=== PATIENT | female | born 1940 | race Caucasian/White ===

== ENCOUNTER 2016-12-19 11:28 | Observation (INO) | payer BC, SELFPAY ==
[2016-12-15 09:25] LABS: HEMATOCRIT 36.6 % (36.0-48.0); HEMOGLOBIN 12.2 g/dL (12.0-16.0)
[2016-12-15 09:37] LABS: BUN (BLOOD UREA NITROGEN) 21 MG/DL (6-23); CALCIUM, SERUM 9.5 MG/DL (8.5-10.4); CHLORIDE, SERUM 104 MMOL/L (96-112); CO2 (CARBON DIOXIDE) 32 MMOL/L (24-34); CREATININE 0.82 MG/DL (0.55-1.02); GFR AFRICAN AMERICAN 81 ML/MIN (>=60); GFR NON AFRICAN AMERICAN 70 ML/MIN (>=60); POTASSIUM, SERUM 3.7 MMOL/L (3.5-5.3); SODIUM, SERUM 144 MMOL/L (135-148)
[2016-12-15 09:38] LABS: GLUCOSE, SERUM 87 MG/DL (60-99)
--- NOTE | ~2016-12-19 | DS ---
Discharge Summary [facility] [address] [facility] [place]. [address] NAME: KALYN PEREZ : 42 STATUS : DIS Slim PAT#: [id number] AGE: 76 ADM/REG DATE : 12/19/16 MR#: [id number] REPORT SERV DATE: 12/29/16 DICTATED BY: JOSE DANIEL GAN DATE: 12/29/16 REPORT STATUS : Draft TRANSCRIBED BY: NILE DATE: 12/29/16 Data Collection from hospitalization DISCHARGE DIAGNOSES: 1. Ventral/incisional hernia. 2. Hypertension. 3. Gastroesophageal reflux disease. 4. Obstructive sleep apnea with continuous positive airway pressure. CONSULTATIONS: None. PROCEDURES: Reduction and mesh patch repair of ventral/incisional hernia via component separation technique, 12/19/2016. PATHOLOGY: Tissue from ventral hernia repair-unremarkable skin and subcutaneous fat. DISCHARGE MEDICATIONS: 1. Tylenol 650 mg every 4 hours as needed. 2. Zyloprim 100 mg twice a day. 3. Aspirin 81 mg every morning. 4. CoQ10 100 mg every morning. 5. Krill oil one capsule at bedtime. 6. Toprol-XL 25 mg every morning. 7. Centrum tablets one tablet daily. 8. Prilosec 20 mg every morning. 9. Klor-Con 20 mEq at bedtime, and 40 mEq every morning. 10.Pravachol 10 mg at bedtime. 11.Refresh drops two drops as needed. 12.Demadex 20 mg every morning. 13.Vitamin D 4,000 units every morning. 14.Vitamin D1 one tablet every morning. 15.Vitamin B12 one tablet every morning. CONDITION AT DISCHARGE: Stable. DISPOSITION: The patient was discharged home on a soft diet with activities as instructed. She would follow up with me on 01/03/2017. HOSPITAL COURSE: This is a 76-year-old female, who was found to have a ventral/incisional hernia. It was described as being chronic, enlarging, and worsening. Her complaints were moderate. Treatment options were discussed and it was elected to proceed with surgical intervention. She was admitted to the hospital at this time for further evaluation and treatment. Upon admission, she was taken to the operating room where she underwent the above-mentioned procedure. She tolerated this well. There were no complications. On postop day #1, she was ambulating in the craven. She had significant pain as anticipated. Blair catheter was in place. We were going to advance her diet over the next couple of days. She was ambulatory. Discharge Summary [address] [address] NAME: KALYN PEREZ : 42 STATUS : DIS Slim PAT#: [id number] AGE: 76 ADM/REG DATE : 12/19/16 MR#: [id number] REPORT SERV DATE: 12/29/16 DICTATED BY: JOSE DANIEL GAN DATE: 12/29/16 REPORT STATUS : Draft TRANSCRIBED BY: NILE DATE: 12/29/16 She did have a bowel movement. She was voiding well. She was making good progress. Discharge planning was performed. On 12/22/2016, she did have some soreness around the incision. Discharge instructions were given. Due to her improved and stable condition, she was discharged home with the above-stated instructions. Information collected by: Deja Veliz I submit the above information as my discharge summary. TEDDY/NILE Jose Daniel Gan M.D. / [id number] CC: Vika Burton M.D.
--- NOTE | ~2016-12-19 | OP ---
Record Of Operation [facility] [address] [place]. [address] NAME: KALYN PEREZ : 42 STATUS : ADM Slim PAT#: [id number] AGE: 76 ADM/REG DATE : 12/19/16 MR#: [id number] REPORT SERV DATE: 12/20/16 DICTATED BY: JOSE DANIEL GAN DATE: 12/20/16 REPORT STATUS : Draft TRANSCRIBED BY: MODL DATE: 12/20/16 DATE OF PROCEDURE: 12/19/2016 PREOPERATIVE DIAGNOSIS: Ventral/incisional hernia. POSTOPERATIVE DIAGNOSIS: Ventral/incisional hernia. PROCEDURE: Reduction and mesh patch repair of ventral/incisional hernia via component separation technique. DESCRIPTION OF OPERATIVE PROCEDURE: The patient was brought to the operating suite, placed in a supine position, and underwent satisfactory general endotracheal anesthesia without incident. Following this, the skin of the abdomen was scrubbed, prepped, and draped in usual sterile fashion. The patient has a long midline incision from previous surgeries, this was opened and dissecting commenced down through the skin and subcutaneous tissue. There was a ventral incisional hernia with marked diastasis of the rectus muscles predominantly centered around the umbilicus. The hernia sac was dissected free and then lateral dissection bilaterally was performed in a subcutaneous fashion on the surface of the anterior rectus sheath to identify the medial aspect of the rectus muscles bilaterally. As previously stated, there was a significant diastasis and subcutaneous dissection was relatively extensive. Eventually, I was able to bilaterally identify the medial aspect of the rectus muscle itself by incising the anterior rectus sheath. The rectus muscle with attached overlying rectus sheath was identified and elevated up off the posterior rectus sheath for the full width of the rectus sheath and then dissection superiorly and inferiorly to encompass the hernia defect. Posterior rectus fascia was closed in the midline with multiple interrupted [id number]-ah-[id number] sutures of 0 Ethibond. Using a component separation technique, a Ventralight ST polypropylene coated mesh patch was utilized. It was trimmed in a "butterfly" fashion and placed on the surface of the posterior rectus closure. The Sepramesh film held it in position. The anterior rectus sheath was attached. The rectus muscle was then closed over the mesh using again the component separation technique and again interrupted qaifxt-sw-sruva sutures of 0 Ethibond were used to secure the closure. Subcutaneous tissue was irrigated and the significant redundant skin and fat was excised in elliptical fashion to remove redundant soft tissue. A 15-Latvian Nawaf drain was left in the subcutaneous tissue, which was then closed with multiple layers of interrupted 3-0 Vicryl, running subcuticular stitch 4-0 Vicryl for the skin, and a Prevena wound system attached, following which an abdominal binder. The Nawaf drain was sutured to the skin with 0 Ethibond. The patient tolerated the procedure and was returned to PACU in stable condition. At the termination of the procedure, sponge, needle, lap, and instrument counts were correct x3. Record Of Operation [facility] [address] [facility] [place]. [address] NAME: KALYN PEREZ : 42 STATUS : ADM Slim PAT#: [id number] AGE: 76 ADM/REG DATE : 12/19/16 MR#: [id number] REPORT SERV DATE: 12/20/16 DICTATED BY: JOSE DANIEL GAN DATE: 12/20/16 REPORT STATUS : Draft TRANSCRIBED BY: NILE DATE: 12/20/16 ESTIMATED BLOOD LOSS: 25-30 mL. BECKY/NILE Jose Daniel Gan M.D. / [id number] CC: Vika Burton M.D.
[~2016-12-19 11:28] MED LIST: AMOXIL875 PO; ASAB PO; AUG875 PO; AZO-STANDARD95 MG PO; CENTRUM PO; CENTRUM TAB1 TAB PO; CIP5 PO; CIPRO PO; CO Q-10100 MG PO; DEMA20 PO; DSS PO; FISH-EPA1000 MG PO; FLAG500TAB PO; HALF81 PO; KLOR-CON M2020 MEQ PO; KLOR-CON20 MEQ PO; KRILLOIL PO; LIPITOR40 PO; LOP25 PO; METOPROLOL PO; NATURA2 OPH; NORCO1 TA1 PO; OSTEO BI-FLX PO; P5 PO; PLAVIX PO; POTASSIUM PO; PRAV10 PO; PRAVAC PO; PRILO PO; PRILOSEC OTC20 MG PO; PRIN5 PO; REFRES1 XX; T PO; TOPXL25 PO; TORSEMIDE PO; TYLENOL ARTH650 MG PO; VIT B PO; VIT B12 OTC PO; VITAMIN B-1 PO; VITAMIN B-12 PO; VITAMIN D PO; Z100 PO; ZANTAC 150 PO; [UNRECOGNIZED DRUG - CODE] PO
[2016-12-20 06:48] LABS: BASOPHILS 0 %; EOSINOPHILS 0 %; HEMATOCRIT 31.6 % (36.0-48.0); HEMOGLOBIN 10.6 g/dL (12.0-16.0); IMMATURE GRANULOCYTES 0.4 %; IMMATURE GRANULOCYTES ABSOLUTE 0.05 10/3/uL (0.0-0.11); LYMPHOCYTES 7.5 %; LYMPHOCYTES ABSOLUTE 1.07 10/3/uL (0.67-4.30); MANUAL DIFF NO %; MEAN CORPUS HGB CONC 33.5 g/dL (32.0-36.0); MEAN CORPUSCULAR HEMOGLOB 31.5 pg (26.0-34.0); MEAN CORPUSCULAR VOLUME 93.8 fL (80-100); MEAN PLATELET VOLUME 9.8 fL (9.2-13.0); MONOCYTES 5.2 %; MONOCYTES ABSOLUTE 0.74 10/3/uL (0.21-1.20); NEUTROPHILS 86.9 %; PLATELET COUNT 235 10/3/uL (150-400); RBC DISTRIBUTION WIDTH 14.1 % (12.0-16.0); RED CELL COUNT 3.37 10/6/uL (4.0-5.6); WHITE BLOOD CELLS 14.3 10/3/uL (4.5-10.5)
[2016-12-20 07:00] LABS: CALCIUM, SERUM 8.7 MG/DL (8.5-10.4); CHLORIDE, SERUM 109 MMOL/L (96-112); CREATININE 0.94 MG/DL (0.55-1.02); GFR AFRICAN AMERICAN 69 ML/MIN (>=60); GFR NON AFRICAN AMERICAN 59 ML/MIN (>=60); POTASSIUM, SERUM 4.3 MMOL/L (3.5-5.3); SODIUM, SERUM 143 MMOL/L (135-148)
[2016-12-20 07:02] LABS: BUN (BLOOD UREA NITROGEN) 15 MG/DL (6-23); CO2 (CARBON DIOXIDE) 27 MMOL/L (24-34); GLUCOSE, SERUM 175 MG/DL (60-99)
[2016-12-22 07:19] LABS: BASOPHILS 0.1 %; BASOPHILS ABSOLUTE 0.01 10/3/uL (0.0-0.16); EOSINOPHILS 0.4 %; EOSINOPHILS ABSOLUTE 0.03 10/3/uL (0.0-0.53); HEMATOCRIT 30.4 % (36.0-48.0); HEMOGLOBIN 10.2 g/dL (12.0-16.0); IMMATURE GRANULOCYTES 0.3 %; IMMATURE GRANULOCYTES ABSOLUTE 0.02 10/3/uL (0.0-0.11); LYMPHOCYTES 36.1 %; LYMPHOCYTES ABSOLUTE 2.55 10/3/uL (0.67-4.30); MEAN CORPUS HGB CONC 33.6 g/dL (32.0-36.0); MEAN CORPUSCULAR HEMOGLOB 31.6 pg (26.0-34.0); MEAN CORPUSCULAR VOLUME 94.1 fL (80-100); MEAN PLATELET VOLUME 9.7 fL (9.2-13.0); MONOCYTES 6.8 %; MONOCYTES ABSOLUTE 0.48 10/3/uL (0.21-1.20); NEUTROPHILS 56.3 %; NEUTROPHILS ABSOLUTE 3.98 10/3/uL (2.02-8.40); PLATELET COUNT 217 10/3/uL (150-400); RBC DISTRIBUTION WIDTH 14.5 % (12.0-16.0); RED CELL COUNT 3.23 10/6/uL (4.0-5.6)
[2016-12-22 07:20] LABS: MANUAL DIFF NO %; WHITE BLOOD CELLS 7.1 10/3/uL (4.5-10.5)
[2016-12-22 07:26] LABS: BUN (BLOOD UREA NITROGEN) 13 MG/DL (6-23); CHLORIDE, SERUM 105 MMOL/L (96-112); CO2 (CARBON DIOXIDE) 28 MMOL/L (24-34); GFR AFRICAN AMERICAN 84 ML/MIN (>=60); GFR NON AFRICAN AMERICAN 72 ML/MIN (>=60); GLUCOSE, SERUM 86 MG/DL (60-99); SODIUM, SERUM 141 MMOL/L (135-148)
== END 2016-12-22 13:57 | disposition home or self-care (01) ==
LOC: SDC/OF 11:28 → PACU 17:23 → 5SO 20:12
PROVIDERS: Specialist
PROC: 0WUF0JZ Supplement Abdominal Wall with Synthetic Substitute, Open Approach (ICD-10-PCS; principal; 2016-12-19 12:00)
DX: K43.2 Incisional hernia without obstruction or gangrene (principal); K21.9 Gastro-esophageal reflux disease without esophagitis; G47.33 Obstructive sleep apnea (adult) (pediatric); I11.0 Hypertensive heart disease with heart failure; I50.9 Heart failure, unspecified; Z99.89 Dependence on other enabling machines and devices; Z91.041 Radiographic dye allergy status; Z95.1 Presence of aortocoronary bypass graft; Z88.5 Allergy status to narcotic agent; Z88.8 Allergy status to other drugs, medicaments and biological substances; Z79.899 Other long term (current) drug therapy; Z79.82 Long term (current) use of aspirin; Z98.41 Cataract extraction status, right eye; Z98.42 Cataract extraction status, left eye; Z98.890 Other specified postprocedural states
CPT/HCPCS: 80048; 85014; 85018; 85025; 87641; 88302; 93005; 96372; 96374; 96376; A9270-GY; C1781; G0378; J0360; J0690; J2405; J2710; J3010